=== PATIENT | male | born 1965 | race Hispanic/Latino ===

== ENCOUNTER → 2018-02-03 | Outpatient (CLI) | payer BC ==
[~2018-02-03] MED LIST: ASPI-1012 PO; ATOR40TA69 PO; CLOP75TA14 PO; HYDR-309 PO; LISI-617 PO; METO50TA18 PO
== END | disposition home or self-care (01) ==
LOC: SHCH 16:09
PROVIDERS: ATTEND Internal Medicine Cardiovascular Disease
DX: I25.10 Atherosclerotic heart disease of native coronary artery without angina pectoris (principal)
CPT/HCPCS: 93306

== ENCOUNTER 2018-02-27 15:30 | Inpatient (IN) | payer BC ==
[~2018-02-27] VITALS: Ht 163.8 cm; Wt 82.3 kg
[2018-02-27 15:21] VITALS: BP 150/91
[2018-02-27 15:29] LABS: APPEARANCE,URINE Clear (CLEAR); BILIRUBIN,URINE Negative (NEGATIVE); COLOR,URINE Yellow (YELLOW); GLUCOSE, URINE (UA) Negative (NEGATIVE); KETONES,URINE Negative (NEGATIVE); LEUKOCYTE ESTERASE ,URINE Negative (NEGATIVE); NITRATE,URINE Negative (NEGATIVE); OCCULT BLOOD,URINE Negative (NEGATIVE); PROTEIN,URINE Negative (NEGATIVE)
[2018-02-27] MEDS ORDERED: ATOR40TA69 PO (15:56)
[2018-02-27] MEDS ORDERED: METO50TA18 PO (15:56)
[2018-02-27] MEDS ORDERED: LISI-617 PO (15:56)
[2018-02-27] MEDS ORDERED: CLOP75TA14 PO (15:56)
[2018-02-28] MEDS: CLINDAMYCIN 900 MG/D5% WATER 50 ML IV SCH (16:00)
[2018-03-01] MEDS: CLINDAMYCIN 900 MG/D5% WATER 50 ML IV SCH (16:00)
[2018-03-02] VITALS (24 sets, daily range): BP systolic 122–157; BP diastolic 78–97
[2018-03-02] MEDS ORDERED: LACTATED RINGERS 1000ML 1,000 ML IV ONE (12:45)
[2018-03-02] MEDS ORDERED: MIDAZOLAM HCL 1 MG/ML 2ML VIAL ONE (12:51)
[2018-03-02] MEDS ORDERED: GLYCOPYRROLATE 0.2 MG/ML 5 ML VIAL ONE (12:51)
[2018-03-02] MEDS ORDERED: DEXAMETHASONE SOD PHOSPHATE 10MG/ML 1ML VIAL ONE (12:51)
[2018-03-02] MEDS ORDERED: NEOSTIGMINE 5MG/5ML SYR IV ONE ×2 (12:51→16:49)
[2018-03-02] MEDS ORDERED: LIDOCAINE PF 2% 5ML ABBOJECT ONE (12:51)
[2018-03-02] MEDS ORDERED: PROPOFOL 10 MG/ML 20ML VIAL IV ONE (12:52)
[2018-03-02] MEDS ORDERED: FENTANYL CITRATE PF 50 MCG/1 ML 2ML VIAL ONE ×2 (12:52→14:45)
[2018-03-02] MEDS ORDERED: ROPIVACAINE 0.5% 5MG/ML 30ML IJ ONE (12:55)
[2018-03-02] MEDS ORDERED: CALDOLOR 800MG+NS 250ML 250 ML IV ONE (12:55)
[2018-03-02] MEDS ORDERED: METOPROLOL TARTRATE 50 MG TAB PO SCH (13:00)
[2018-03-02] MEDS: CLINDAMYCIN 900 MG/D5% WATER 50 ML IV SCH ×3 (13:00→20:03)
[2018-03-02] MEDS ORDERED: OXYCODONE HCL 10 MG TAB.SR.12H PO ONE (13:04)
[2018-03-02] MEDS ORDERED: CELECOXIB 200 MG CAP ONE (13:04)
[2018-03-02] MEDS ORDERED: ACETAMINOPHEN EXTRA STRENGTH 500 MG TABLET ONE (13:06)
[2018-03-02] MEDS ORDERED: CLINDAMYCIN PHOSPHATE 150 MG/ML 6ML VIAL ONE (13:12)
[2018-03-02] MEDS ORDERED: TRANEXAMIC ACID 1000MG/10ML IV ONE (13:12)
[2018-03-02] MEDS ORDERED: CLINDAMYCIN PHOSPHATE 150 MG/ML 6ML VIAL IJ ONE (15:03)
[2018-03-02] MEDS ORDERED: METOCLOPRAMIDE 10 MG/2 ML VIAL ONE (16:50)
[2018-03-02] MEDS ORDERED: ONDANSETRON HCL 4 MG/2 ML VIAL IVP PRN (17:15)
[2018-03-02] MEDS: ACETAMINOPHEN EXTRA STRENGTH 500 MG TABLET PO SCH ×2 (17:15→23:54)
[2018-03-02] MEDS ORDERED: DiphenhydrAMINE HCL 50 MG/ML VIAL IVP PRN (17:15)
[2018-03-02] MEDS ORDERED: TRAMADOL HCL 50 MG TABLET PO PRN (17:15)
[2018-03-02] MEDS ORDERED: CALCIUM CARBONATE 500 MG TABLET PO PRN (17:15)
[2018-03-02] MEDS ORDERED: POTASSIUM CHLORIDE 10% ELIXIR 20 MEQ/15 ML UDCUP PO PRN (17:15)
[2018-03-02] MEDS ORDERED: FERROUS FUMARATE 324 MG TABLET PO PRN (17:15)
[2018-03-02] MEDS ORDERED: KETOROLAC TROMETHAMINE 15MG/ML IV PRN (17:15)
[2018-03-02] MEDS ORDERED: POTASSIUM CHLORIDE 20MEQ/100ML 100 ML IV PRN (17:15)
[2018-03-02] MEDS ORDERED: LIDOCAINE HCL-MPF 1% 2ML VIAL IVP PRN (17:15)
[2018-03-02] MEDS ORDERED: POTASSIUM CHLORIDE 20 MEQ ERTAB PO PRN (17:15)
[2018-03-02] MEDS ORDERED: TEMAZEPAM 15 MG CAPSULE PO PRN (17:15)
[2018-03-02] MEDS ORDERED: OXYCODONE HCL 5 MG TAB PO PRN ×2 (17:15)
[2018-03-02] MEDS ORDERED: MEPERIDINE-PF 50 MG/ML SYG ONE ×2 (17:40→18:04)
[2018-03-02] MEDS: SODIUM CHLORIDE 0.9% 1000ML 1,000 ML IV SCH (20:01)
[2018-03-02] MEDS: PREGABALIN 25 MG CAP PO SCH (21:02)
[2018-03-02] MEDS: FAMOTIDINE 20MG TAB 20 MG TAB PO SCH (21:02)
[2018-03-02] MEDS: CELECOXIB 200 MG CAP PO SCH (21:02)
[2018-03-02] MEDS: ASPIRIN 325 MG TABLET PO SCH (21:02)
[2018-03-02] MEDS: CLINDAMYCIN 900 MG/D5% WATER 50 ML IVPB SCH (23:53)
[2018-03-03] MEDS: SODIUM CHLORIDE 0.9% 1000ML 1,000 ML IV SCH ×2 (04:08→13:09)
[2018-03-03 05:26] LABS: HEMATOCRIT 34.9 % (42-54); MEAN CORPUSCULAR HEMOGLOBIN 29.7 pg (27.0-33.0); MEAN CORPUSCULAR HGB CONC 34.7 g/dL (32.0-36.0); MEAN CORPUSCULAR VOLUME 85.5 fL (79-99); PLATELET COUNT (AUTO) 233 K/uL (130-400); RED BLOOD CELL COUNT(AUTO) 4.08 MIL/uL (4.50-6.20); WHITE BLOOD COUNT (AUTO) 11.8 K/uL (4.8-10.8)
[2018-03-03 05:44] LABS: POTASSIUM 4.9 mmol/L (3.5-5.1)
[2018-03-03] MEDS: CLINDAMYCIN 900 MG/D5% WATER 50 ML IVPB SCH (05:51)
[2018-03-03 07:33] VITALS: BP 141/89
[2018-03-03] MEDS: POLYETHYLENE GLYCOL 3350 17 GM POWD.PACK PO SCH (08:51)
[2018-03-03] MEDS: LISINOPRIL 5 MG TABLET PO SCH (08:52)
[2018-03-03] MEDS: ATORVASTATIN CALCIUM 40 MG TABLET PO SCH (08:52)
[2018-03-03] MEDS: FAMOTIDINE 20MG TAB 20 MG TAB PO SCH ×2 (08:52→19:54)
[2018-03-03] MEDS: METOPROLOL TARTRATE 50 MG TAB PO SCH (08:53)
[2018-03-03] MEDS: ASPIRIN 325 MG TABLET PO SCH ×2 (08:53→19:54)
[2018-03-03] MEDS: CELECOXIB 200 MG CAP PO SCH ×2 (08:53→19:54)
[2018-03-03] MEDS: CLOPIDOGREL BISULFATE 75 MG TAB PO SCH (08:53)
[2018-03-03] MEDS: PREGABALIN 25 MG CAP PO SCH ×2 (08:53→19:54)
[2018-03-03] MEDS: ACETAMINOPHEN EXTRA STRENGTH 500 MG TABLET PO SCH ×2 (08:56→16:59)
[2018-03-03] MEDS: TAMSULOSIN HCL 0.4 MG CAP.ER.24H PO SCH (08:57)
[2018-03-03 11:23] VITALS: BP 118/69
[2018-03-03 16:32] VITALS: BP 110/76
[2018-03-03 20:07] VITALS: BP 130/78
[2018-03-04 00:01] VITALS: BP 123/70
[2018-03-04] MEDS: ACETAMINOPHEN EXTRA STRENGTH 500 MG TABLET PO SCH ×3 (01:43→17:27)
[2018-03-04 04:38] VITALS: BP 141/86
[2018-03-04] MEDS: POLYETHYLENE GLYCOL 3350 17 GM POWD.PACK PO SCH (08:10)
[2018-03-04] MEDS: TAMSULOSIN HCL 0.4 MG CAP.ER.24H PO SCH (08:11)
[2018-03-04] MEDS: ATORVASTATIN CALCIUM 40 MG TABLET PO SCH (08:11)
[2018-03-04] MEDS: LISINOPRIL 5 MG TABLET PO SCH (08:11)
[2018-03-04] MEDS: CLOPIDOGREL BISULFATE 75 MG TAB PO SCH (08:11)
[2018-03-04] MEDS: FAMOTIDINE 20MG TAB 20 MG TAB PO SCH (08:11)
[2018-03-04] MEDS: METOPROLOL TARTRATE 50 MG TAB PO SCH (08:11)
[2018-03-04] MEDS: CELECOXIB 200 MG CAP PO SCH (08:11)
[2018-03-04] MEDS: ASPIRIN 325 MG TABLET PO SCH (08:11)
[2018-03-04] MEDS: PREGABALIN 25 MG CAP PO SCH (10:23)
[2018-03-04 11:05] VITALS: BP 90/56
[2018-03-04] MEDS ORDERED: HYDR-309 PO (14:43)
[2018-03-04] MEDS ORDERED: ASPI-1012 PO (14:43)
[2018-03-04 15:43] VITALS: BP 136/83
[2018-03-05] MEDS ORDERED: BISACODYL 10 MG SUPP.RECT RC PRN (17:15)
== END 2018-03-04 19:30 | disposition home health service (06) | DRG 470 ==
LOC: EDSTATUS 15:30 → DAHIP 03-02 12:00 → 4AH 03-02 18:49
PROVIDERS: ADMIT Orthopaedic Surgery; ATTEND Orthopaedic Surgery
PROC: 0SRB0JZ Replacement of Left Hip Joint with Synthetic Substitute, Open Approach (ICD-10-PCS; principal; 2018-03-02 13:55)
DX: M87.9 Osteonecrosis, unspecified (principal); I11.9 Hypertensive heart disease without heart failure; E78.5 Hyperlipidemia, unspecified; M16.12 Unilateral primary osteoarthritis, left hip; I25.10 Atherosclerotic heart disease of native coronary artery without angina pectoris; I25.5 Ischemic cardiomyopathy; Z88.0 Allergy status to penicillin; I25.2 Old myocardial infarction; Z95.5 Presence of coronary angioplasty implant and graft; Z82.3 Family history of stroke; Z83.3 Family history of diabetes mellitus
CPT/HCPCS: 36415; 76000; 80048; 81003; 85027; 88304; 88311; 97039; J1100; J1741; J2001; J2175; J2250; J2704; J2710; J2765; J2795; J3010; J3490; J7030; J7120

== ENCOUNTER → 2022-10-02 | Outpatient (CLI) | payer BC ==
[~2022-10-02] MED LIST changes: +CLOP-31 PO; -CLOP75TA14 PO; -HYDR-309 PO; +HYDR-4457 PO; -LISI-617 PO; +LISI5TAB21 PO
[2022-10-02 12:36] LABS: BASOPHILS % (AUTO) 0.8 % (0.0-5.0); EOSINOPHILS % (AUTO) 3.8 % (0.0-8.0); HEMATOCRIT 38.9 % (42-54); LYMPHOCYTES % (AUTO) 22.9 % (21.0-51.0); MEAN CORPUSCULAR HGB CONC 32.1 g/dL (32.0-36.0); MONOCYTES % (AUTO) 7.2 % (3.0-13.0); PLATELET COUNT (AUTO) 264 K/uL (130-400); RED BLOOD CELL COUNT(AUTO) 4.63 MIL/uL (4.50-6.20); RED CELL DISTRIBUTION WIDTH 13.2 % (11.0-15.5); WHITE BLOOD COUNT (AUTO) 7.9 K/uL (4.8-10.8)
[2022-10-02 12:59] LABS: POTASSIUM 4.2 mmol/L (3.5-5.1)
== END | disposition home or self-care (01) ==
LOC: LAB 08:56
PROVIDERS: ATTEND Physician Assistant
DX: I25.10 Atherosclerotic heart disease of native coronary artery without angina pectoris (principal); E78.5 Hyperlipidemia, unspecified
CPT/HCPCS: 36415; 80053; 80061; 85025

== ENCOUNTER → 2023-03-13 | Outpatient (CLI) | payer BC ==
[~2023-03-13] MED LIST changes: -ASPI-1012 PO; +ASPI-1443 PO; -ATOR40TA69 PO; +ATOR40TA71 PO; +DOCU100C33 PO; -HYDR-4457 PO; +ISOS30TA92 PO; -LISI5TAB21 PO; +METO-408 PO; -METO50TA18 PO; +PANT40TA54 PO; +RANO500T6 PO; +SACU1TAB PO; +TRAM50TA4 PO
[2023-03-13 16:18] LABS: BASOPHILS % (AUTO) 0.8 % (0.0-5.0); EOSINOPHILS % (AUTO) 2.3 % (0.0-8.0); HEMATOCRIT 37.5 % (42-54); LYMPHOCYTES % (AUTO) 29.7 % (21.0-51.0); MEAN CORPUSCULAR HEMOGLOBIN 27.3 pg (27.0-33.0); MEAN CORPUSCULAR HGB CONC 32.5 g/dL (32.0-36.0); MEAN CORPUSCULAR VOLUME 83.9 fL (79-99); MONOCYTES % (AUTO) 8.8 % (3.0-13.0); NEUTROPHILS % (AUTO) 57.9 % (40.0-77.0); PLATELET COUNT (AUTO) 188 K/uL (130-400); RED BLOOD CELL COUNT(AUTO) 4.47 MIL/uL (4.50-6.20); RED CELL DISTRIBUTION WIDTH 14.6 % (11.0-15.5)
[2023-03-13 16:48] LABS: ALBUMIN 3.8 g/dL (3.5-5.0); CREATININE 1.2 mg/dL (0.5-1.5); TOTAL PROTEIN, SERUM 7.2 g/dL (6.0-8.3)
== END | disposition home or self-care (01) ==
LOC: LAB 14:10
PROVIDERS: ATTEND Internal Medicine Cardiovascular Disease
DX: I25.5 Ischemic cardiomyopathy (principal); R06.02 Shortness of breath
CPT/HCPCS: 36415; 80053; 83880; 85025

== ENCOUNTER → 2023-06-11 | Outpatient (CLI) | payer BC | END | disposition home or self-care (01) | LOC: LAB 11:16 | PROVIDERS: ATTEND Internal Medicine Cardiovascular Disease | DX: R06.02 Shortness of breath (principal) | CPT/HCPCS: 36415; 83880 ==

== ENCOUNTER → 2023-09-05 | Outpatient (CLI) | payer BC | END | disposition home or self-care (01) | LOC: SHCH 13:06 | PROVIDERS: ATTEND Internal Medicine Cardiovascular Disease | DX: I20.9 Angina pectoris, unspecified (principal); I11.9 Hypertensive heart disease without heart failure; R06.09 Other forms of dyspnea; E78.5 Hyperlipidemia, unspecified; Z95.0 Presence of cardiac pacemaker | CPT/HCPCS: 93306 ==

== ENCOUNTER → 2023-09-18 | Outpatient (CLI) | payer BC | END | disposition home or self-care (01) | LOC: RAH 08:07 | PROVIDERS: ATTEND Internal Medicine Cardiovascular Disease | DX: K76.0 Fatty (change of) liver, not elsewhere classified (principal); R19.00 Intra-abdominal and pelvic swelling, mass and lump, unspecified site | CPT/HCPCS: 76700 ==

== ENCOUNTER → 2023-09-23 | Outpatient (CLI) | payer BC ==
[~2023-09-23] MED LIST changes: +REGADENOSON 0.4 MG/5 ML PF SYG IVP ONE
== END | disposition home or self-care (01) ==
LOC: SHCH 08:41
PROVIDERS: ATTEND Internal Medicine Cardiovascular Disease
DX: R06.09 Other forms of dyspnea (principal); I20.9 Angina pectoris, unspecified
CPT/HCPCS: 78452; 96374; 93017; J2785; A9500 ×2